=== PATIENT | female | born 1960 | race Caucasian/White ===

== ENCOUNTER 2019-09-05 09:17 | Emergency (ER) | payer OTHER ==
[~2019-09-05] VITALS: Ht 167.6 cm; Wt 90.7 kg
[2019-09-05 09:17] VITALS: BP_SYST 118
[~2019-09-05 09:17] MED LIST: DOCU-144 PO; HYDR-3924 PO; LAM100 PO; METR500T PO; NAPR-690 PO; PHEN100C4 PO; PROP120C2 PO; VENL75CA PO; ZONI100C42 PO
--- NOTE | 2019-09-05 09:17 | NUR ---
BROUGHT BACK TO BED #5 VIA WHEELCHAIR AND TRIAGED. REPORT GIVEN TO CYNDEE
--- NOTE | 2019-09-05 09:20 | NUR ---
Patient arrived via POV, AAOx4, and brought in by daughter. Patient states she was having intense pain to her left lower back and was seen at urgent care on . Patient states there was no rash present and they sent her home with muscle strain. Yesterday she states she noticed a rash to her left buttock and in her left groin. Unilateral rash with scabbing. Patient states when she was seen on Friday she was diagnosed with shingles and sent home with an antiviral medication and pain medication. She has been taking as directed with no relief. Patient states pain is intense burning 10/10 pain.
[2019-09-05] MEDS ORDERED: PREDNISONE 20 MG TABLET PO ONE (09:30)
[2019-09-05] MEDS ORDERED: MORPHINE 4 MG/ML INJ. SYRINGE IM ONE ×2 (09:30→10:00)
--- NOTE | 2019-09-05 09:30 | NUR ---
MARY Antunez at bedside examining patient.
[2019-09-05] MEDS ORDERED: IBUPROFEN 800 MG TABLET PO ONE (09:45)
--- NOTE | 2019-09-05 09:45 | NUR ---
medicated the pt w/ Mor[place]ine 4mg and Ibuprofen per MD order.
[2019-09-05 10:15] VITALS: BP_SYST 118
--- NOTE | 2019-09-05 10:16 | NUR ---
Patient given written and verbal discharge instructions and verbalizes understanding. ER MD discussed with patient the results and treatment provided. Patient in stable condition. ID arm band removed. Rx of Prednisone, Ibuprofen given. Patient educated on pain management and to follow up with PMD. Pain Scale 5/10. MD made aware Opportunity for questions provided and answered. Medication side effect fact sheet provided.
== END 2019-09-05 10:16 | disposition home or self-care (01) ==
LOC: SED 09:17
DX: B02.9 Zoster without complications (principal); Z79.899 Other long term (current) drug therapy
CPT/HCPCS: 96372; 99283; J2270; J7512

== ENCOUNTER 2022-05-24 17:49 | Emergency (ER) | payer OTHER ==
[~2022-05-24] VITALS: Ht 167.6 cm; Wt 99.8 kg
[~2022-05-24 17:49] MED LIST changes: -HYDR-3924 PO; +HYDR-4497 PO
[2022-05-24 18:00] VITALS: BP_SYST 110
--- NOTE | 2022-05-24 18:48 | NUR ---
Patient triaged and placed in waiting room. VSS and patient appears in no acute distress at this time. Accompanied by self, awaiting available bed, and MD notified of need for MSE.
--- NOTE | 2022-05-24 21:21 | NUR ---
Placed in room 01 . Placed on monitoring coordinator, blood pressure machine and pulse oximeter. To gown for exam. Side rails up. Report given to REINALDO Pennington
--- NOTE | 2022-05-24 21:52 | NUR ---
Pt to bed 1 w/ c/o "belly button bleeding since this am". Pt states "I have had small amounts of bright red blood in my stool for one month". Pt denies N/V, Pt denies dizziness. Pt states periumbilical pain 01/31. Normal skin color for ethnicity. Respirations even and unlabored.
[2022-05-24 22:50] LABS: BASOPHILS # (AUTO) 0.1 K/uL (0.0-0.2); BASOPHILS % (AUTO) 0.7 % (0.0-2.0); EOSINOPHILS # (AUTO) 0.3 K/uL (0.0-0.4); EOSINOPHILS % (AUTO) 2.1 % (0.0-4.0); HEMATOCRIT 41.1 % (36-48); HEMOGLOBIN 13.7 g/dL (12.0-16.0); LYMPHOCYTES # (AUTO) 3.8 K/uL (1.0-5.5); LYMPHOCYTES % (AUTO) 31.9 % (20.5-51.5); MEAN CORPUSCULAR HEMOGLOBIN 31 pg (27-31); MEAN CORPUSCULAR HGB CONC 33 % (32-36); MEAN CORPUSCULAR VOLUME 94 fL (79.0-98.0); MONOCYTES # (AUTO) 0.9 K/uL (0.0-1.0); MONOCYTES % (AUTO) 7.9 % (1.7-9.3); NEUTROPHILS # (AUTO) 6.9 K/uL (1.8-7.7); NEUTROPHILS % (AUTO) 57.4 % (40.0-70.0); PLATELET COUNT (AUTO) 188 K/uL (130-430); RED BLOOD CELL COUNT(AUTO) 4.39 MIL/uL (4.2-6.2); RED CELL DISTRIBUTION WIDTH 13.4 % (9.0-15.0)
[2022-05-24 22:58] LABS: ANION GAP 7 (5-15); CALCIUM 8.4 mg/dL (8.4-11.0); CHLORIDE 104 mmol/L (98-107); CREATININE 1.08 mg/dL (0.55-1.30); GLUCOSE 117 mg/dL (70-99); POTASSIUM 3.7 mmol/L (3.5-5.1); SODIUM SERUM 138 mmol/L (136-145); UREA NITROGEN, BLOOD 15 mg/dL (8-21)
[2022-05-24 23:05] LABS: ALANINE AMINOTRANSFERASE 14 U/L (12-78); ALBUMIN 3.3 g/dL (3.4-4.8); ASPARTATE AMINOTRANSFERASE 18 U/L (10-37); TOTAL BILIRUBIN 0.3 mg/dL (0.0-1.0)
[2022-05-24 23:07] LABS: GFR AFRICAN AMERICAN 67 mL/min (>90)
[2022-05-24 23:10] LABS: PROTHROMBIN TIME 10.4 SECS (9.5-12.5)
--- NOTE | 2022-05-25 00:16 | NUR ---
Pt consented for CT w/ contrast at this time. Unsuccessful IV attempt. Ksenia NAJERA to start IV at this time.
--- NOTE | 2022-05-25 00:45 | NUR ---
Pt at CT at this time
--- NOTE | 2022-05-25 02:36 | NUR ---
MD speaking to patient at this time regarding patient's condition. Pt informed of cellulitis to umbilicus.
--- NOTE | 2022-05-25 02:43 | NUR ---
Rectal exam performed by Dr. Nicole Rayo with this RN at bedside during procedure. Patient tolerated well.
[2022-05-25] MEDS ORDERED: cefTRIAXone 1 GM IVPB PREMIX 50 ML IV ONE (02:55)
[2022-05-25] MEDS ORDERED: cefTRIAXone 1 GM in D5W 50 ML IV ONE (03:00)
[2022-05-25] MEDS ORDERED: CEPH250C PO (03:14)
[2022-05-25] MEDS ORDERED: ANURH RC (03:14)
[2022-05-25] MEDS ORDERED: DOXY100C5 PO (03:14)
[2022-05-25 03:24] VITALS: BP_SYST 121
--- NOTE | 2022-05-25 03:24 | NUR ---
Patient given written and verbal discharge instructions and verbalizes understanding. ER MD discussed with patient the results and treatment provided. Patient in stable condition. ID arm band removed. IV catheter removed intact and dressing applied, no active bleeding. Rx of anusol, keflex, and doxycycline given. Patient educated on pain management and to follow up with PMD. Pain Scale 0/10 Opportunity for questions provided and answered. Medication side effect fact sheet provided.
== END 2022-05-25 03:24 | disposition home or self-care (01) ==
LOC: SED 17:49
DX: K62.5 Hemorrhage of anus and rectum (principal); L03.316 Cellulitis of umbilicus; R10.33 Periumbilical pain; Z79.899 Other long term (current) drug therapy
CPT/HCPCS: 36415; 74177; 76376; 80053; 82272; 83880; 84484; 85025; 85610; 85730; 86886; 86900; 86901; 93005; 96365; 99285; J0696; Q9967

== ENCOUNTER 2023-01-14 12:33 | Emergency (ER) | payer OTHER ==
[~2023-01-14] VITALS: Ht 162.6 cm; Wt 99.8 kg
[~2023-01-14 12:33] MED LIST changes: +ANURH RC; +CEPH250C PO; +DOXY100C5 PO
[2023-01-14 13:01] VITALS: BP_SYST 140
--- NOTE | 2023-01-14 13:15 | NUR ---
Patient to ER bed H1 to gown for evaluation. Side rails up.
--- NOTE | 2023-01-14 13:20 | NUR ---
ER at bedside examining patient.
--- NOTE | 2023-01-14 13:25 | NUR ---
PT BIB FAMILY FOR SEIZURE ACTIVITY AT HOME.
[2023-01-14] MEDS ORDERED: KETOROLAC TROMETHAMINE 30 MG VIAL IVP ONE (13:30)
[2023-01-14] MEDS ORDERED: LORazepam 2 MG/ML VIAL IVP ONE (13:30)
[2023-01-14 13:53] LABS: BASOPHILS # (AUTO) 0.1 K/uL (0.0-0.2); BASOPHILS % (AUTO) 0.7 % (0.0-2.0); EOSINOPHILS # (AUTO) 0.1 K/uL (0.0-0.4); EOSINOPHILS % (AUTO) 0.6 % (0.0-4.0); HEMATOCRIT 46.5 % (36-48); HEMOGLOBIN 15.3 g/dL (12.0-16.0); LYMPHOCYTES # (AUTO) 3.8 K/uL (1.0-5.5); LYMPHOCYTES % (AUTO) 23.3 % (20.5-51.5); MEAN CORPUSCULAR HEMOGLOBIN 30 pg (27-31); MEAN CORPUSCULAR HGB CONC 33 % (32-36); MEAN CORPUSCULAR VOLUME 92 fL (79.0-98.0); MONOCYTES # (AUTO) 1.5 K/uL (0.0-1.0); NEUTROPHILS # (AUTO) 10.9 K/uL (1.8-7.7); NEUTROPHILS % (AUTO) 66.4 % (40.0-70.0); PLATELET COUNT (AUTO) 251 K/uL (130-430); RED BLOOD CELL COUNT(AUTO) 5.04 MIL/uL (4.2-6.2); WHITE BLOOD COUNT (AUTO) 16.5 K/uL (4.8-10.8)
--- NOTE | 2023-01-14 14:00 | NUR ---
PT MEDICATED TOLERATED WELL.
[2023-01-14 14:07] LABS: ANION GAP 10 (5-15); CALCIUM 9.5 mg/dL (8.4-11.0); CHLORIDE 103 mmol/L (98-107); CREATININE 1.15 mg/dL (0.55-1.30); GLUCOSE 123 mg/dL (70-99); UREA NITROGEN, BLOOD 18 mg/dL (8-21)
[2023-01-14 14:13] LABS: ALANINE AMINOTRANSFERASE 20 U/L (12-78); ALBUMIN 3.9 g/dL (3.4-4.8); ASPARTATE AMINOTRANSFERASE 18 U/L (10-37); TOTAL BILIRUBIN 0.9 mg/dL (0.0-1.0)
[2023-01-14 14:16] LABS: GFR AFRICAN AMERICAN 62 mL/min (>90)
[2023-01-14] MEDS ORDERED: levETIRAcetam 1,000 MG IV BAG 100 ML IV ONE (14:45)
[2023-01-14] MEDS ORDERED: KETOROLAC TROMETHAMINE 30 MG VIAL ONE (15:54)
--- NOTE | 2023-01-14 17:16 | NUR ---
Patient given written and verbal discharge instructions and verbalizes understanding. ER MD discussed with patient the results and treatment provided. Patient in stable condition. ID arm band removed. IV catheter removed intact and dressing applied, no active bleeding. NO Rx of given. Patient educated on pain management and to follow up with PMD. Pain Scale 0. Opportunity for questions provided and answered. Medication side effect fact sheet provided.
== END 2023-01-14 17:16 | disposition home or self-care (01) ==
LOC: SED 12:33
DX: G40.909 Epilepsy, unspecified, not intractable, without status epilepticus (principal); R07.9 Chest pain, unspecified; E78.5 Hyperlipidemia, unspecified; Z79.899 Other long term (current) drug therapy
CPT/HCPCS: 99285; 96365; 71045; 96375; 80053; 85025; 84484; 36415; 93005; J1885; J1953